=== PATIENT | female | born 1990 | race Caucasian/White ===

== ENCOUNTER 2017-12-05 11:14 | Day surgery (SDC) | payer OTHER ==
[2017-12-05] MEDS ORDERED: PROPOFOL 40 ML (12:48)
== END 2017-12-05 14:31 | disposition home or self-care (01) ==
LOC: GIL 11:14
DX: K29.60 Other gastritis without bleeding (principal); K44.9 Diaphragmatic hernia without obstruction or gangrene; K21.9 Gastro-esophageal reflux disease without esophagitis
CPT/HCPCS: 43239; 84703; 88305

== ENCOUNTER 2017-12-21 06:17 | Day surgery (SDC) | payer OTHER ==
[2017-12-21] MEDS ORDERED: PROPOFOL 40 ML (07:26)
[2017-12-21] MEDS ORDERED: LIDOCAINE 2% (SDV) 5 ML INJ (07:26)
[2017-12-21] MEDS ORDERED: ONDANSETRON 4 MG INJ (07:40)
== END 2017-12-21 10:58 | disposition home or self-care (01) ==
LOC: GIL 06:17
DX: K64.8 Other hemorrhoids (principal); R19.7 Diarrhea, unspecified
CPT/HCPCS: 45380; 84703; 88305